=== PATIENT | male | born 1930 | race Caucasian/White ===

== ENCOUNTER 2018-01-01 09:28 | Emergency (ER) | payer MEDICARE, BC ==
[2018-01-01 10:02] LABS: BASOPHILS 0.9 % (0-2); EOSINOPHILS 3.1 % (0-7); HEMATOCRIT 45.8 % (42.0-54.0); HEMOGLOBIN 15.1 g/dL (13.5-17.5); IMMATURE GRANULOCYTES 0.2 % (0-5); LYMPHOCYTES 35.9 % (15-50); MCH 30.1 pg (26.0-34.0); MCV 91.4 fL (80.0-100.0); MEAN PLATELET VOLUME 10.2 fL (7.4-10.4); MONOCYTES 14.9 % (2-11); PLATELET COUNT 228 10x3/uL (130-400); RBC 5.01 10x6/uL (4.20-6.10); WBC 9.8 10x3/uL (4.8-10.8)
[2018-01-01 10:12] LABS: ALBUMIN 3.9 g/dL (3.4-5.0); ALKALINE PHOSPHATASE 52 U/L (46-116); ALT (SGPT) 81 U/L (10-68); BILIRUBIN - TOTAL 0.58 mg/dL (0.2-1.3); CALC OSMOLALITY 276 mosm/kg (275-300); CALCIUM 9.5 mg/dL (8.5-10.1); CARBON DIOXIDE 31.8 mmol/L (21.0-32.0); CHLORIDE - SERUM 101 mmol/L (98-107); CREATININE - SERUM 1.3 mg/dL (0.6-1.3); GLUCOSE 106 mg/dL (74-106); POTASSIUM - SERUM 3.7 mmol/L (3.5-5.1); PROTEIN - SERUM 8.2 g/dL (6.4-8.2); SODIUM 138 mmol/L (136-145); UREA NITROGEN 16 mg/dL (7-18); eGFR NON AFRICAN AMERICAN 55 mL/min (90-120)
[2018-01-01 10:23] LABS: CHOL - HDL RATIO 6.1 ratio (2.3-4.9); CHOLESTEROL, TOTAL 303 mg/dL (0-200); CKMB 1.9 U/L (0.0-3.6); CREATINE KINASE 140 UL (21-232); HDL CHOLESTEROL 50 mg/dL (32-96); LDL CHOLESTEROL 179 mg/dL (0-100); LDL-HDL RATIO 3.6 ratio (1.5-3.5); TRIGLYCERIDE 371 mg/dL (30-200); TROPONIN-I 0.046 ng/mL (0.000-0.060)
[2018-01-01 10:53] LABS: AMYLASE - SERUM 50 U/L (25-115); LIPASE 214 U/L (73-393)
[2018-01-01 10:57] LABS: INR 0.95 (0.85-1.17); PROTIME 12.3 SECONDS (11.6-15.0)
[2018-01-01 12:27] LABS: APPEARANCE CLEAR (CLEAR); BILIRUBIN NEGATIVE (NEGATIVE); COLOR YELLOW (YELLOW); GLUCOSE NEGATIVE (NEGATIVE); KETONE NEGATIVE (NEGATIVE); NITRITE NEGATIVE (NEGATIVE); PROTEIN NEGATIVE (NEGATIVE); SPECIFIC GRAVITY 1.005 (1.005-1.020); UROBILINOGEN NORMAL (NORMAL)
[2018-01-01 12:28] LABS: EPITHELIAL CELLS NSEEN /hpf (0-5); RED CELLS - URINE NONE SEEN /hpf (0-5); WHITE CELLS - URINE 0-5 /hpf (0-5)
[2018-01-01 12:29] LABS: BACTERIA NONE SEEN /hpf (NONE SEEN)
[2018-01-01 15:18] LABS: CKMB 1.3 U/L (0.0-3.6); CREATINE KINASE 109 UL (21-232); PRO BNP 112 pg/mL (0-450)
[2018-02-24 07:07] VITALS: BMI 33.9
== END 2018-01-01 16:01 | disposition home or self-care (01) ==
LOC: D.ER 09:28
PROVIDERS: Emergency Medicine; Nurse Practitioner Family
DX: R07.9 Chest pain, unspecified (principal); R94.5 Abnormal results of liver function studies; I45.10 Unspecified right bundle-branch block

== ENCOUNTER 2018-01-11 10:56 | Outpatient (CLI) | payer MEDICARE, BC ==
[~2018-01-11] VITALS: Ht 167.6 cm; Wt 95.0 kg
--- NOTE | ~2018-01-11 | HEMODYNAMI ---
PATIENT:BHARATH MEDINA MEDICAL RECORD: [id number] : 32 LOCATION:[facility] ADMISSION DATE: 01/11/18 Generatedon:01/11/201814:08 Patient name: BHARATH MEDINA Patient #: [id number] SSN: D OB: 1930 Date of study: 01/11/2018 Page: Of Hemodynamic Procedure Report Patient Data Patient Demographics Procedure consent was obtained First Name: BHARATH Gender: Male Last Name: ADAM : 1930 [facility] Initial: E Age: 87 year(s) Patient #: [id number] Race: Unknown Additional ID: [id number] Contact details Address: [address] [place] [address] State: [place] City: [facility] Zip code: [address] Past Medical History Allergies: No known allergies Admission Admission Data Admission Date: 01/11/2018 Admission Time: 10:56 Lab Results Lab Result Date: 01/11/2018 Lab Result Time: 0:00 Biochemistry Name Units Result Min Max BUN mg/dl 22 --(----)-* 7 18 Creatinine mg/dl 1.3 --(---*)-- 0.6 1.3 CBC Name Units Result Min Max Hemoglobin g/dl 15.3 --(-*--)-- 13.5 17.5 Procedure Procedure Types Cath Procedure Diagnostic Procedure [facility] w/Coronaries Sedation Charges Moderate Sedation up to 30 minutes PCI Procedure Coronary Stent Coronary Stent Initial Procedure Description Procedure Date Procedure Date: 01/11/2018 Procedure Start Time: 13:31 Procedure End Time: 14:08 Procedure Staff Name Function Reyes Weller MD Performing Physician Yue Mac RT Monitor Nafisa Oliver RT Scrub Jose Cruz Yoo RN Nurse Procedure Data Cath Procedure Fluoroscopy Diagnostic fluoroscopy Total fluoroscopy Time: 10 time: 10 min min Diagnostic fluoroscopy Total fluoroscopy dose: dose: 1106 mGy 1106 mGy Contrast Material Contrast Material Type Amount (ml) Isovue 300 146 Entry Location Entry Primary Successful Side Size Upsize Upsize Entry Closure Bennett ccessful Closure Location (Fr) 1 (Fr) 2 (Fr) Remarks Device Remarks Radial Right 6 Fr Mechanical artery Short Compression Estimated blood loss: 10 ml Diagnostic catheters Device Type Used For End Catheter Placement DIAGNOSTIC Alexey 110cm LV Angiography 5Fr catheter ([id number]) DIAGNOSTIC Alexey 110cm Left Coronary 5Fr catheter (116604) Angiography DIAGNOSTIC Alexey 110cm Right Coronary 5Fr catheter ([id number]) Angiography DIAGNOSTIC AR 2 MOD 5 Fr Right Coronary catheter ([id number]) Angiography DIAGNOSTIC AR MOD 5Fr Right Coronary Catheter ([id number]) Angiography Procedure Complications No complications Procedure Medications Medication Administration Route Dosage Oxygen NC 2 l/min Lidocaine 2% added to field 20 Heparin Flush Bag added to field 2 bags (1000units/500ml NS) 0.9% NaCl I.V. 100 ml/hr Versed I.V. 1 mg Fentanyl I.V. 50 mcg Versed I.V. 1 mg Fentanyl I.V. 50 mcg Versed I.V. 1 mg Fentanyl I.V. 50 mcg Heparin Bolus I.V. 9500 units Versed I.V. 1 mg Fentanyl I.V. 50 mcg Plavix P.O. 600 mg Hemodynamics Rest HGB: 15.3 (g/dl) Heart Rate: 63 (bpm) Pressure Samples Time Site Value (mmHg) Purpose Heart Use Rate(bpm) 13:33 LV 123/14,27 EDP 67 Gradients Valve Time Site Site Mean SEP/DFP Peak To Heart Use 1 2 (mmHg) (sec/min) Peak Rate (mmHg) (bpm) Aortic 13:34 LV AO 65 Snapshots Pre Cath Intra NCS Post Cath Vital Signs Time Heart Resp SPO2 etCO2 NIBP (mmHg) Rhythm Pain Sedation Rate (ipm) (%) (mmHg) Status Level (bpm) 13:20:54 68 18 100 35.9 158/76(135) NSR 0 (11) 10(A) , No pain 13:26:28 61 16 100 32.9 126/64(95) NSR 0 (11) 10(A) , No pain 13:31:10 58 14 96 1.4 126/78(106) NSR 0 (11) 9(A) , No pain 13:35:49 64 14 94 2.9 107/83(96) NSR 0 (11) 9(A) , No pain 13:40:30 67 15 95 3.7 104/69(96) NSR 0 (11) 9(A) , No pain 13:45:10 66 17 97 0 111/63(97) NSR 0 (11) 9(A) , No pain 13:49:53 65 18 98 2.9 124/62(89) NSR 0 (11) 9(A) , No pain 13:54:37 66 19 98 24.6 123/66(102) NSR 0 (11) 9(A) , No pain 13:59:22 67 16 98 22.4 133/73(97) NSR 0 (11) 9(A) , No pain 14:04:07 77 15 99 35.1 141/82(99) NSR 0 (11) 10(A) , No pain Medications Time Medication Route Dose Verified Delivered Reason Notes Effectiveness by by 13:26:07 Oxygen NC 2 Reyes Buffie used for l/min Nithin Yoo RN procedure 13:26:15 Lidocaine 2% added 20ml Reyes Reyes used for to vial Nithin Weller MD procedure field 13:26:21 Heparin Flush added 2 Reyes Reyes used for Bag to bags Nithin Weller MD procedure (1000units/500ml field NS) 13:26:29 0.9% NaCl I.V. 100 Reyes Buffie Per physician ml/hr Nithin Yoo RN 13:26:37 Versed I.V. 1 mg Reyes Buffie for sedation Nithin Yoo RN 13:26:43 Fentanyl I.V. 50 Reyes Buffie for sedation mcg Nithin Yoo RN 13:28:12 Versed I.V. 1 mg Reyes Buffie for sedation Nithin Yoo RN 13:28:15 Fentanyl I.V. 50 Reyes Buffie for sedation mcg Nithin Yoo RN 13:33:37 Versed I.V. 1 mg Reyes Buffie for sedation Nithin Yoo RN 13:33:46 Fentanyl I.V. 50 Reyes Buffie for sedation mcg Nithin Yoo RN 13:46:19 Heparin Bolus I.V. 9500 Reyes Buffie for verifi ed units Nithin Yoo RN anticoagulation with dr weller 13:48:14 Versed I.V. 1 mg Reyes Buffie for sedation Nithin Yoo RN 13:48:18 Fentanyl I.V. 50 Reyes Billingsley for sedation mcg Nithin Yoo RN 14:06:16 Plavix P.O. 600 Reyes Billingsley for mg Nithin Yoo RN antiplatelet therapy Procedure Log Time Note 12:56:24 Time tracking: Regular hours 12:56:28 Plan of Care:Hemodynamics will remain stable., Cardiac rhythm will remain stable., Comfort level will be maintained., Respiratory function will remain adequate., Patient/ family verbilizes understanding of procedure., Procedure tolerated without complication., Recovers from procedure without complications.. 12:56:31 Signed procedure consent form obtained from patient. 12:56:38 H&P Date Dictated: 01/07/2018 Within 30 days and on chart., H&P Addendum completed by physician on day of procedure. (MUST COMPLETE FOR ALL OUTPATIENTS). 12:57:44 Patient allergic to No known allergies 12:58:24 Lab Result : BUN 22 mg/dl 12:58:24 Lab Result : Creatinine 1.3 mg/dl 12:58:24 Lab Result : Hemoglobin 15.3 g/dl 13:04:08 Nafisa Oliver RT(R) sent for patient. Start room use. 13:10:43 Patient received from Pre/Post Procedure Room to CCL 1 Alert and oriented. Tansferred to table in Supine position. 13:19:46 Warm blankets applied, and ebony hugger turned on for patient comfort. 13:19:46 Correct patient and procedure confirmed by team. 13:19:47 ECG and BP/O2 sat monitors applied to patient. 13:19:48 Vital chart was started 13:19:49 Full Disclosure recording started 13:20:02 Rhythm: sinus rhythm 13:20:04 Pre-procedure instructions explained to patient. 13:20:05 Pre-op teaching completed and patient verbalized understanding. 13:20:08 Family unavailable. 13:20:09 Patient NPO since Midnight. 13:20:11 Is the patient allergic to Iodine/contrast media? No. 13:20:13 Is patient on blood thinner?No 13:20:15 Patient diabetic? No. 13:20:18 Previous problem with sedation/anesthesia? No ? 13:20:19 Snore? Yes 13:20:20 Sleep apnea? No 13:20:21 Deviated septum? No 13:20:21 Opens mouth fully? Yes 13:20:22 Sticks out tongue? Yes 13:20:24 Airway obstruction? No ? 13:20:27 Dentures? Yes IN 13:20:30 Pre procedure: right dorsailis pedis pulse 2+ Normal; easily identifiable; not easily obliterated 13:20:32 Modified Lazaro's test Ulnar < 7 seconds 13:20:34 Patient pain scale 0/10 ?. 13:20:40 IV patent on arrival in left hand with 0.9% NaCl at [facility]. 13:20:45 Lab results completed and on chart. 13:20:51 Right Radial & Right Groin area was prepped with chlora-prep and draped in sterile fashion 13:20:53 Alarms reviewed by R. N. 13:20:53 Sharps counted by scrub and verified by R.N. 13:21:01 Use device set Radial Dx or PCI 13:21:02 ACIST Syringe (61370) opened to sterile field. 13:21:02 Medline Cath Pack ([id number]) opened to sterile field. 13:21:02 Bag Decanter (2002S) opened to sterile field. 13:21:03 DIAGNOSTIC WIRE .035 260cm J wire (178196) opened to sterile field. 13:21:13 SHEATH 6Fr Prelude Radial ([id number]) opened to sterile field. 13:21:15 ACIST Hand Control (52032) opened to sterile field. 13:21:16 ACIST Manifold (44198) opened to sterile field. 13:21:16 Tegaderm 4 x 4 (1626W) opened to sterile field. 13:21:19 NEEDLE Cook 21G 4cm Radial ([id number]) opened to sterile field. 13:22:45 Final Timeout: patient, procedure, and site verified with staff and physician. All members of the team are in agreement. 13:22:48 Right Radial site verified by team. 13:22:50 Physical assessment completed. ASA score P 2 - A patient with mild systemic disease as per Reyes Weller MD. 13:22:53 Sedation plan: IV Moderate Sedation Medication:Versed, Fentanyl 13:24:34 Zero performed for pressure channel P1 13:24:41 Baseline sample Acquired. 13:26:07 Oxygen 2 l/min NC was administered by Jose Cruz Yoo RN; used for procedure; 13:26:15 Lidocaine 2% 20ml vial added to field was administered by Reyes Weller MD; used for procedure; 13:26:21 Heparin Flush Bag (1000units/500ml NS) 2 bags added to field was administered by Reyes Weller MD; used for procedure; 13::29 0.9% NaCl 100 ml/hr I.V. was administered by Jose Cruz Yoo RN; Per physician; 13:26:37 Versed 1 mg I.V. was administered by Jose Cruz Yoo RN; for sedation; 13::43 Fentanyl 50 mcg I.V. was administered by Jose Cruz Yoo RN; for sedation; 13:28:12 Versed 1 mg I.V. was administered by Jose Cruz Yoo RN; for sedation; 13:28:15 Fentanyl 50 mcg I.V. was administered by Jose Cruz Yoo RN; for sedation; 13:30:44 Procedure started. 13:31:06 Local anesthetic to right radial artery with Lidocaine 2% by Reyes Weller MD.INITIAL ACCESS ONLY 13:31:35 A 6 Fr Short sheath was inserted into the Right Radial artery 13:32:03 A DIAGNOSTIC Alexey 110cm 5Fr catheter ([id number]) was advanced over the wire and used for LV Angiography. 13:33:05 Zero performed for pressure channel P1 13:33:15 Zero performed for pressure channel P1 13:33:27 Zero performed for pressure channel P1 13:33:37 Versed 1 mg I.V. was administered by Jose Cruz Yoo RN; for sedation; 13:33:46 Fentanyl 50 mcg I.V. was administered by Jose Cruz Yoo RN; for sedation; 13:33:53 LV gram done using MOREL 13:34:00 LV hemodynamics recorded. 13:34:06 Injector settings: Ml/sec: 5, Volume: 15, 13:34:11 EF : 55 % 13:34:27 Catheter removed. 13:35:09 A DIAGNOSTIC Alexey 110cm 5Fr catheter (066745) was advanced over the wire and used for Left Coronary Angiography. 13:37:20 A DIAGNOSTIC Alexey 110cm 5Fr catheter (345649) was advanced over the wire and used for Right Coronary Angiography. unable to cannulate 13:37:21 Catheter removed. 13:37:58 A DIAGNOSTIC AR MOD 5Fr Catheter ([id number]) was advanced over the wire and used for Right Coronary Angiography. 13:40:07 Catheter removed. 13:40:43 A DIAGNOSTIC AR 2 MOD 5 Fr catheter ([id number]) was advanced over the wire and used for Right Coronary Angiography. 13:42:13 Catheter removed. 13:42:17 Use device set NITHIN PCI 13:42:20 TUBING High Pressure Extension Tubing (Weller) ([id number]) opened to sterile field. 13:42:21 INFLATOR Merit BasixCompak (CI0863) opened to sterile field. 13:42:24 BMW 300cm [place] 2 J wire ([id number]) opened to sterile field. 13:42:27 GUIDE 6FR XBLAD 3.5 catheter ([id number]) opened to sterile field. 13:44:12 6 Fr XBLAD 3.5 guide catheter was inserted over the wire 13:44:38 Procedure type changed to Cath procedure, Diagnostic procedure, LHC, LHC w/Coronaries, Sedation Charges, Moderate Sedation up to 30 minutes, PCI procedure, Coronary Stent, Coronary Stent Initial 13:46:19 Heparin Bolus 9500 units I.V. was administered by Jose Cruz Yoo RN; for anticoagulation; verified with dr weller 13:47:15 BMW wire advanced. 13:48:14 Versed 1 mg I.V. was administered by Jose Cruz Yoo RN; for sedation; 13:48:18 Fentanyl 50 mcg I.V. was administered by Jose Cruz Yoo RN; for sedation; 13:51:06 Inflation number: 1 A EMERGE OTW 2.0 x 20 balloon ([id number]) was prepped and advanced across the Mid LAD, then inflated to 13 IRENE for 0:27 (min:sec). 13:51:41 Inflation number: 2 The EMERGE OTW 2.0 x 20 balloon ([id number]) was reinflated across the Mid LAD, to 14 IRENE for 0:18 (min:sec). 13:52:30 Stent catheter was removed intact over wire. 14:01:49 Inflation Number: 3 A ELUNIR 2.75 x 24 stent ([id number]) was prepped and advanced across the Mid LAD. The stent was deployed at 14 IRENE for 0:23 (min:sec). 14:02:22 Stent catheter was removed intact over wire. 14:02:25 Wire removed. 14:03:12 Guide catheter removed. 14:03:19 Sheath removed intact; hemostasis achieved with Mechanical Compression to the Right Radial artery. 14:03:21 Procedure ended.(Physican Out) 14:03:31 Fluoroscopy time 10.00 minutes. 14:03:34 Fluoroscopy dose: 1106 mGy 14:03:34 Flurop Dose total: 1106 14:03:37 Contrast amount:Isovue 300 146ml. 14:03:39 Sharps counted by scrub and verified by R.N. 14:03:41 TR band inflated with 14cc of air. 14:06:15 Insertion/operative site no bleeding no hematoma. 14:06:16 Plavix 600 mg P.O. was administered by Jose Cruz Yoo RN; for antiplatelet therapy; 14:06:28 Post right radial artery:stable, clean and dry 14:06:29 Post Procedure Pulses reassessed and unchanged 14:06:32 Post-procedure physical assessment completed. ASA score P 2 - A patient with mild systemic disease as per Reyes Weller MD. 14:06:35 Post procedure rhythm: unchanged. 14:06:42 Estimated blood loss: 10 ml 14:06:43 Post procedure instruction explained to patient.Patient verbalizes understanding. 14:06:44 Patient needs reinforcement of post procedure teaching. 14:06:49 Procedure Complication : No complications 14:06:51 See physician's report for complete and final results. 14:07:51 TR BAND Standard ([id number]) opened to sterile field. 14:08:13 Procedure and supply charges have been captured, reviewed, submitted and are correct. 14:08:13 Vital chart was stopped 14:08:15 Report given to Pre/Post Procedure Room. 14:08:17 Patient transfered to Pre/Post Procedure Room with Stretcher. 14:08:24 Procedure ended. 14:08:24 Full Disclosure recording stopped 14:08:29 End room use (Document Last) Intervention Summary Intervention Notes Time ActionType Lesion and Equipment Action# Pressure Duration Attributes Used 13:51:06 Inflate Mid LAD EMERGE OTW 1 13 00:27 balloon 2.0 x 20 balloon ([id number]) 13:51:41 Reinflate Mid LAD EMERGE OTW 2 14 00:18 balloon 2.0 x 20 balloon ([id number]) 14:01:49 Place stent Mid LAD ELUNIR 2.75 x 3 14 00:23 24 stent ([id number]) Device Usage Item Name Manufacture Quantity Catalog Number Hospital Part Current Minimal Lot# / Charge Number Stock Stock Serial# Code ACIST Syringe Acist 1 17788 274579 287598 169961 20 (01447) [employer] Medline Cath Cardinal 1 [id number] 358230 14975 120509 5 Pack Health ([id number]) Bag Decanter Microtek 1 2001S 889865 42710 396792 5 (2001S) Medical Inc. DIAGNOSTIC WIRE St Sim 1 389558 830649 023154 868925 30 .035 260cm J wire (612037) SHEATH 6Fr Merit 1 [id number] 642599 013713 285495 5 Prelude Radial Medical ([id number]) ACIST Hand Acist 1 79556 071407 156629 796344 5 Control (66689) Medical Systems Inc ACIST Manifold Acist 1 99445 380532 567480 321344 5 (01311) [employer] Tegaderm 4 x 4 3M 1 1626W 882051 986948 111386 5 (1626W) NEEDLE Cook 21G Cook Medical 1 [id number] 589564 269125 467700 5 4cm Radial (T79255) DIAGNOSTIC Terumo 1 40-2112 655603 534099 788549 5 Alexey 110cm 5Fr catheter (687794) DIAGNOSTIC AR 2 Cardinal 1 [id number] 969480 758362 811179 20 MOD 5 Fr Health catheter (383921M) DIAGNOSTIC AR Cardinal 1 [id number] 966501 509369 617463 15 MOD 5Fr Health Catheter (256060U) TUBING High Merit 1 [id number] 959845 09117 627582 10 Pressure Medical Extension Tubing (Weller) ([id number]) INFLATOR Merit Merit 1 XE5756 898157 889496 833784 15 [facility] (YS0298) BMW 300cm [place] 1 [id number] 421470 743665 794868 5 [place] 2 J Vascular wire (2047645X) GUIDE 6FR XBLAD Cardinal 1 [id number] 593660 317610 717640 10 3.5 catheter Health (35276000) EMERGE OTW 2.0 Stafford 1 [id number] 293209 548805 606387 5 [id number] x 20 balloon Scientific ([id number]) ELUNIR 2.75 x Cardinal 1 [id number] 184202 068877 273172 5 [id number] 24 stent Health ([id number]) TR BAND Terumo 1 [id number] 372692 068515 453948 40 Standard ([id number]) Signature Audit [place] Stage Time Signature Unsigned Intra-Procedure 01/11/2018 Yue 2:08:40 PM Counts RT(R) Signatures Monitor : Yue Signature : Counts RT Date : Time : [id number] [place] [address]
[2018-01-11] MEDS ORDERED: LEVOTHYROXINE50 MCG PO (11:14)
[2018-01-11] MEDS ORDERED: COZAAR50 MG PO (11:14)
[2018-01-11] MEDS ORDERED: HYDROCHLOROTHIA50 MG PO (11:15)
[2018-01-11] MEDS ORDERED: PEPCID40 MG PO (11:15)
[2018-01-11] MEDS ORDERED: CARAFATE1 G PO (11:16)
[2018-01-11] MEDS ORDERED: PROPRANOLOL HCL80 MG PO (11:16)
[2018-01-11] MEDS ORDERED: ATIVAN0.5 MG PO (11:17)
[2018-01-11] MEDS ORDERED: BAYER CHEWABLE81 MG PO ×2 (11:17→14:24)
[2018-01-11] MEDS ORDERED: MULTIPLE VITAMI1 TA1 PO (11:17)
[2018-01-11 11:28] VITALS: BP 193/82; Ht 167.6 cm; Wt 95.0 kg
[2018-01-11 11:34] LABS: BASOPHILS 1.1 % (0-2); EOSINOPHILS 2.8 % (0-7); HEMATOCRIT 46.2 % (42.0-54.0); HEMOGLOBIN 15.3 g/dL (13.5-17.5); IMMATURE GRANULOCYTES 0.3 % (0-5); MCH 29.9 pg (26.0-34.0); MCHC 33.1 g/dL (31.0-37.0); MCV 90.4 fL (80.0-100.0); MEAN PLATELET VOLUME 10.5 fL (7.4-10.4); MONOCYTES 15.8 % (2-11); PLATELET COUNT 241 10x3/uL (130-400); RBC 5.11 10x6/uL (4.20-6.10); RDW 13.6 % (11.5-14.5); WBC 10.3 10x3/uL (4.8-10.8)
[2018-01-11 12:29] LABS: ANION GAP 8.9 mmol/L (8-16); CALCIUM 9.4 mg/dL (8.5-10.1); CARBON DIOXIDE 31.5 mmol/L (21.0-32.0); CREATININE - SERUM 1.3 mg/dL (0.6-1.3); POTASSIUM - SERUM 4.4 mmol/L (3.5-5.1)
[2018-01-11] MEDS ORDERED: PLAVIX75 MG PO (14:24)
== END 2018-01-11 18:30 | disposition home or self-care (01) ==
LOC: D.CATH 10:56
PROVIDERS: Internal Medicine Cardiovascular Disease
DX: I25.110 Atherosclerotic heart disease of native coronary artery with unstable angina pectoris (principal); I10 Essential (primary) hypertension; Z01.812 Encounter for preprocedural laboratory examination
CPT/HCPCS: 93458; C9600

== ENCOUNTER 2018-02-24 06:28 | Outpatient (CLI) | payer MEDICARE, BC ==
[~2018-02-24] VITALS: Ht 167.6 cm; Wt 95.5 kg
--- NOTE | ~2018-02-24 | HEMODYNAMI ---
PATIENT:BHARATH MEDINA MEDICAL RECORD: [id number] : 32 LOCATION:[facility] ADMISSION DATE: 02/24/18 Generatedon:02/24/20189:20 Patient name: BHARATH MEDINA Patient #: [id number] SSN: D OB: 1930 Date of study: 02/24/2018 Page: Of Hemodynamic Procedure Report Patient Data Patient Demographics Procedure consent was obtained First Name: BHARATH Gender: Male Last Name: ADAM : 1930 [facility] Initial: E Age: 87 year(s) Patient #: [id number] Race: Unknown Additional ID: [id number] Contact details Address: [address] [place] [address] State: [place] City: [facility] Zip code: [address] Past Medical History Allergies: No known allergies Admission Admission Data Admission Date: 02/24/2018 Admission Time: 6:28 Procedure Procedure Types Cath Procedure Diagnostic Procedure LHC LHC w/Coronaries Sedation Charges Moderate Sedation up to 15 minutes Procedure Description Procedure Date Procedure Date: 02/24/2018 Procedure Start Time: 8:59 Procedure End Time: 9:18 Procedure Staff Name Function Reyes Weller MD Performing Physician Marina Holliday RT Monitor Allyssa Church RT Scrub Jose Cruz Yoo RN Nurse Procedure Data Cath Procedure Fluoroscopy Diagnostic fluoroscopy Total fluoroscopy Time: 5.5 time: 5.5 min min Diagnostic fluoroscopy Total fluoroscopy dose: 750 dose: 750 mGy mGy Contrast Material Contrast Material Type Amount (ml) Isovue 300 65 Entry Location Entry Primary Successful Side Size Upsize Upsize Entry Closure Bennett ccessful Closure Location (Fr) 1 (Fr) 2 (Fr) Remarks Device Remarks Radial Right 6 Fr Mechanical artery Short Compression Estimated blood loss: 10 ml Diagnostic catheters Device Type Used For End Catheter Placement DIAGNOSTIC Alexey 110cm Procedure 5Fr catheter ([id number]) DIAGNOSTIC [place] 110cm 5 Procedure Fr catheter (368540) DIAGNOSTIC Carmina 5Fr Procedure catheter (140067) DIAGNOSTIC Alexey 110cm Procedure 5Fr catheter (068877) Procedure Complications No complications Procedure Medications Medication Administration Route Dosage Oxygen NC 2 l/min Lidocaine 2% added to field 20 Heparin Flush Bag added to field 2 bags (1000units/500ml NS) 0.9% NaCl I.V. 100 ml/hr Radial Cocktail I.A. 1 syringe (Verapomil 2mg/Nitro 400mcg/Heparin 1500units) Versed I.V. 1 mg Fentanyl I.V. 50 mcg Versed I.V. 1 mg Fentanyl I.V. 50 mcg Versed I.V. 1 mg Fentanyl I.V. 25 mcg Hemodynamics Rest Heart Rate: 64 (bpm) Pressure Samples Time Site Value (mmHg) Purpose Heart Use Rate(bpm) 9:01 LV 96/11,24 Snapshot 71 Gradients Valve Time Site Site Mean SEP/DFP Peak To Heart Use 1 2 (mmHg) (sec/min) Peak Rate (mmHg) (bpm) Aortic 9:02 LV AO 62 Snapshots Pre Cath Intra NCS Post Cath Vital Signs Time Heart Resp SPO2 etCO2 NIBP (mmHg) Rhythm Pain Sedation Rate (ipm) (%) (mmHg) Status Level (bpm) 8:38:13 71 15 100 34.5 165/77(136) NSR 0 (11) 10(A) , No pain 8:42:43 61 18 99 36.7 138/64(114) NSR 0 (11) 10(A) , No pain 8:47:03 59 14 94 27 120/64(99) NSR 0 (11) 10(A) , No pain 8:52:06 56 16 98 29 113/60(92) NSR 0 (11) 10(A) , No pain 8:56:18 55 16 97 0 112/62(99) NSR 0 (11) 10(A) , No pain 9:00:28 56 15 96 10.5 116/64(90) NSR 0 (11) 9(A) , No pain 9:04:42 56 17 97 20.2 97/54(62) NSR 0 (11) 9(A) , No pain 9:08:52 57 16 97 13.5 95/59(82) NSR 0 (11) 9(A) , No pain 9:13:04 57 17 98 31.5 94/53(80) NSR 0 (11) 9(A) , No pain 9:17:14 60 17 98 25.5 97/56(77) NSR 0 (11) 10(A) , No pain Medications Time Medication Route Dose Verified Delivered Reason Notes E ffectiveness by by 8:40:03 Oxygen NC 2 l/min Reyes Buffie used for Nithin Yoo RN procedure 8:40:10 Lidocaine 2% added 20ml Reyes Reyes for local to vial Nithin Weller MD anesthetic field 8:40:16 Heparin Flush added 2 bags Reyes Reyes used for Bag to Nithin Weller MD procedure (1000units/500ml field NS) 8:40:26 0.9% NaCl I.V. 100 Reyes Buffie Per ml/hr Nithin Yoo RN physician 8:57:12 Versed I.V. 1 mg Reyes Buffie for sedation Nithin Yoo RN 8:57:17 Fentanyl I.V. 50 mcg Reyes Buffie for sedation Nithin Yoo RN 9:00:40 Radial Cocktail I.A. 1 Reyes Reyes for (Verapomil syringe Nithin Weller MD vasodilation 2mg/Nitro 400mcg/Heparin 1500units) 9:00:46 Versed I.V. 1 mg Reyes Buffie for sedation Nithin Yoo RN 9:00:50 Fentanyl I.V. 50 mcg Reyes Buffie for sedation Nithin Yoo RN 9:06:09 Versed I.V. 1 mg Reyes Buffie for sedation Nithin Yoo RN 9:06:15 Fentanyl I.V. 25 mcg Reyes Buffie for sedation Nithin Yoo RN Procedure Log Time Note 8:15:15 Jose Cruz Yoo RN sent for patient. Start room use. 8:15:16 Time tracking: Regular hours (M-F 7:00 - 5:00) 8:15:21 Plan of Care:Hemodynamics will remain stable., Cardiac rhythm will remain stable., Comfort level will be maintained., Respiratory function will remain adequate., Patient/ family verbilizes understanding of procedure., Procedure tolerated without complication., Recovers from procedure without complications.. 8:27:30 Patient received from Pre/Post Procedure Room to [facility] Alert and oriented. Tansferred to table in Supine position. 8:27:31 Warm blankets applied, and ebony hugger turned on for patient comfort. 8:27:32 Correct patient and procedure confirmed by team. 8:27:34 Signed procedure consent form obtained from patient. 8:27:37 ECG and BP/O2 sat monitors applied to patient. 8:36:47 Vital chart was started 8:36:48 Baseline sample Acquired. 8:36:52 Rhythm: sinus rhythm 8:36:54 Full Disclosure recording started 8:36:58 H&P Date Dictated: 02/24/2018 Within 30 days and on chart., H&P Addendum completed by physician on day of procedure. (MUST COMPLETE FOR ALL OUTPATIENTS). 8:36:59 Pre-procedure instructions explained to patient. 8:37:00 Pre-op teaching completed and patient verbalized understanding. 8:40:03 Oxygen 2 l/min NC was administered by Jose Cruz Yoo RN; used for procedure; 8:40:10 Lidocaine 2% 20ml vial added to field was administered by Reyes Weller MD; for local anesthetic; 8:40:16 Heparin Flush Bag (1000units/500ml NS) 2 bags added to field was administered by Reyes Weller MD; used for procedure; 8:40:26 0.9% NaCl 100 ml/hr I.V. was administered by Jose Cruz Yoo RN; Per physician; 8:41:06 Family in waiting room. 8:41:08 Patient NPO since Midnight. 8:41:14 Patient allergic to No known allergies 8:41:17 Is the patient allergic to Iodine/contrast media? No. 8:41:19 Was the patient premedicated? Yes 8:41:26 Is patient on blood thinner?Yes 8:41:29 ACC The patient was administered the following blood thiners within the last 24 hours: ACCPlavix 8:41:35 Patient diabetic? No. 8:41:42 Previous problem with sedation/anesthesia? No ? 8:41:47 Snore? Yes 8:41:55 Dentures? Yes in tight 8:42:00 Patient pain scale 0/10 ?. 8:42:09 IV patent on arrival in left forearm with 0.9% NaCl at O. 8:42:22 Lab results completed and on chart. 8:42:26 Right Radial & Right Groin area was prepped with chlora-prep and draped in sterile fashion 8:42:28 Alarms reviewed by R. N. 8:42:29 Sharps counted by scrub and verified by R.N. 8:50:02 Physician paged 8:51:44 Zero performed for pressure channel P1 8:51:54 Zero performed for pressure channel P1 8:56:14 Physician arrived 8:56:15 --------ALL STOP TIME OUT------ 8:56:18 Final Timeout: patient, procedure, and site verified with staff and physician. All members of the team are in agreement. 8:57:12 Versed 1 mg I.V. was administered by Jose Cruz Yoo RN; for sedation; 8:57:17 Fentanyl 50 mcg I.V. was administered by Jose Curz Yoo RN; for sedation; 8:58:00 Right Radial site verified by team. 8:58:04 Physical assessment completed. ASA score P 2 - A patient with mild systemic disease as per Reyes Weller MD. 8:58:09 Sedation plan: IV Moderate Sedation Medication:Versed, Fentanyl 8:58:14 Use device set Femoral Dx 8:58:16 ACIST Syringe (32357) opened to sterile field. 8:58:16 Bag Decanter (2002S) opened to sterile field. 8:58:17 Medline Cath Pack ([id number]) opened to sterile field. 8:58:19 DIAGNOSTIC WIRE .035 260cm J wire (663797) opened to sterile field. 8:58:21 ACIST Hand Control (93230) opened to sterile field. 8:58:22 ACIST Manifold (60827) opened to sterile field. 8:58:22 DIAGNOSTIC Multipack 5Fr catheter set ([id number]) opened to sterile field. 8:58:24 Tegaderm 4 x 4 (1626W) opened to sterile field. 8:59:00 SHEATH 6Fr Prelude Radial ([id number]) opened to sterile field. 8:59:23 Procedure started. 8:59:39 Local anesthetic to right radial artery with Lidocaine 2% by Reyes Weller MD.INITIAL ACCESS ONLY 8:59:54 A 6 Fr Short sheath was inserted into the Right Radial artery 9:00:26 A DIAGNOSTIC Alexey 110cm 5Fr catheter (693849) was advanced over the wire and used for Procedure. 9:00:40 Radial Cocktail (Verapomil 2mg/Nitro 400mcg/Heparin 1500units) 1 syringe I.A. was administered by Reyes Weller MD; for vasodilation; 9:00:46 Versed 1 mg I.V. was administered by Jose Cruz Yoo RN; for sedation; 9:00:50 Fentanyl 50 mcg I.V. was administered by Jose Cruz Yoo RN; for sedation; 9:02:05 EF : 60 % 9:03:07 RCA angiography performed. 9:03:55 Catheter removed. 9:04:11 A DIAGNOSTIC [place] 110cm 5 Fr catheter (392872) was advanced over the wire and used for Procedure. 9:06:09 Versed 1 mg I.V. was administered by Jose Cruz Yoo RN; for sedation; 9:06:15 Fentanyl 25 mcg I.V. was administered by Jose Cruz Yoo RN; for sedation; 9:08:11 Catheter removed. 9:08:20 A DIAGNOSTIC Carmina 5Fr catheter (153339) was advanced over the wire and used for Procedure. 9:10:51 Catheter removed. 9:11:14 A DIAGNOSTIC Alexey 110cm 5Fr catheter (518364) was advanced over the wire and used for Procedure. 9:14:55 LCA angiography performed. 9:15:00 Catheter removed. 9:15:13 TR BAND Standard ([id number]) opened to sterile field. 9:15:26 Sheath removed intact; hemostasis achieved with Mechanical Compression to the Right Radial artery. 9:16:03 Procedure ended.(Physican Out) 9:16:21 Fluoroscopy time 05.50 minutes. 9:16:25 Fluoroscopy dose: 750 mGy 9:16:25 Flurop Dose total: 750 9:16:30 Contrast amount:Isovue 300 65ml. 9:16:32 Sharps counted by scrub and verified by R.N. 9:16:37 TR band inflated with 12cc of air. 9:16:38 Insertion/operative site no bleeding no hematoma. 9:16:46 Post Procedure Pulses reassessed and unchanged 9:16:57 Post-procedure physical assessment completed. ASA score P 2 - A patient with mild systemic disease as per Reyes Weller MD. 9:17:01 Post procedure rhythm: sinus rhythm 9:17:04 Estimated blood loss: 10 ml 9:17:17 Post procedure instruction explained to patient.Patient verbalizes understanding. 9:17:26 Procedure type changed to Cath procedure, Diagnostic procedure, LHC, LHC w/Coronaries, Sedation Charges, Moderate Sedation up to 15 minutes 9:17:31 Procedure and supply charges have been captured, reviewed, submitted and are correct. 9:17:53 Procedure Complication : No complications 9:17:56 Vital chart was stopped 9:17:59 See physician's report for complete and final results. 9:18:01 Report given to Pre/Post Procedure Room. 9:18:04 Patient transfered to Pre/Post Procedure Room with Stretcher. 9:18:07 Procedure ended. 9:18:07 Full Disclosure recording stopped 9:18:11 End room use (Document Last) Device Usage Item Name Manufacture Quantity Catalog Number Hospital Part Current M inimal Lot# / Charge Number Stock Stock Serial# Code ACIST Syringe Acist 1 30200 026876 874616 713024 2 0 (57707) [employer] Bag Decanter Microtek 1 2001S 645342 49795 818053 5 () Medical Inc. Medline Cath Cardinal 1 [id number] 448150 78770 675092 5 Pack Health ([id number]) DIAGNOSTIC WIRE St Sim 1 690633 993495 747148 364502 3 0 .035 260cm J wire (452171) ACIST Hand Acist 1 99485 849427 564633 471021 5 Control (27351) [employer] Inc ACIST Manifold Acist 1 96767 284248 798860 851799 5 (05767) [employer] Inc DIAGNOSTIC Cardinal 1 [id number] 961534 14063 681122 3 0 Multipack 5Fr Health catheter set (DO0013) Tegaderm 4 x 4 3M 1 1626W 745590 059897 819116 5 (1626W) SHEATH 6Fr Merit 1 [id number] 938893 041086 271559 5 Prelude Radial Medical ([id number]) DIAGNOSTIC Terumo 1 40-5023 379718 826868 351533 5 Alexey 110cm 5Fr catheter (316609) DIAGNOSTIC Terumo 1 40-5013 134891 402310 930380 5 [place] 110cm 5 Fr catheter (754116) DIAGNOSTIC Terumo 1 40-5022 238764 159739 391645 5 Carmina 5Fr catheter (451043) TR BAND Terumo 1 [id number] 785535 806342 413632 4 0 Standard ([id number]) Signature Audit Roma Stage Time Signature Unsigned Intra-Procedure 02/24/2018 Marina Holliday 9:20:54 AM RT(R) Signatures Monitor : Marina Holliday Signature : RT Date : Time : [place] [address] [place] [address]
[~2018-02-24 06:28] MED LIST: ATIVAN0.5 MG PO; BAYER CHEWABLE81 MG PO; CARAFATE1 G PO; COZAAR50 MG PO; HYDROCHLOROTHIA50 MG PO; LEVOTHYROXINE50 MCG PO; MULTIPLE VITAMI1 TA1 PO; PEPCID40 MG PO; PLAVIX75 MG PO; PROPRANOLOL HCL80 MG PO
[2018-02-24 07:07] VITALS: BP 161/73; Ht 167.6 cm; Wt 95.5 kg
[2018-02-24 07:24] LABS: BASOPHILS 0.8 % (0-2); EOSINOPHILS 3.1 % (0-7); HEMATOCRIT 40.7 % (42.0-54.0); HEMOGLOBIN 13.5 g/dL (13.5-17.5); IMMATURE GRANULOCYTES 0.5 % (0-5); LYMPHOCYTES 31.7 % (15-50); MCH 29.6 pg (26.0-34.0); MCHC 33.2 g/dL (31.0-37.0); MCV 89.3 fL (80.0-100.0); MEAN PLATELET VOLUME 9.5 fL (7.4-10.4); MONOCYTES 15.3 % (2-11); NEUTROPHILS 48.6 % (40-80); PLATELET COUNT 287 10x3/uL (130-400); RBC 4.56 10x6/uL (4.20-6.10); RDW 13.4 % (11.5-14.5); WBC 9.2 10x3/uL (4.8-10.8)
[2018-02-24 07:33] LABS: ANION GAP 14.7 mmol/L (8-16); CALCIUM 9.1 mg/dL (8.5-10.1); CARBON DIOXIDE 23.7 mmol/L (21.0-32.0); CREATININE - SERUM 1.4 mg/dL (0.6-1.3); POTASSIUM - SERUM 4.4 mmol/L (3.5-5.1)
== END 2018-02-24 11:55 | disposition home or self-care (01) ==
LOC: D.CATH 06:28
PROVIDERS: Internal Medicine Cardiovascular Disease
DX: I25.119 Atherosclerotic heart disease of native coronary artery with unspecified angina pectoris (principal); Z95.5 Presence of coronary angioplasty implant and graft; Z01.812 Encounter for preprocedural laboratory examination

== ENCOUNTER 2018-04-17 14:10 | Inpatient (IN) | payer MEDICARE, BC ==
[~2018-04-17] VITALS: Ht 167.6 cm; Wt 96.9 kg
--- NOTE | ~2018-04-17 | DS ---
PATIENT:BHARATH MEDINA :32 MEDICAL RECORD: [id number] DISCHARGE SUMMARY ADMISSION DATE: 04/17/18 DISCHARGE DATE: 04/19/18 DATE OF ADMISSION: 04/17/2018 DATE OF DISCHARGE: 04/19/2018 ADMISSION DIAGNOSES: Leukocytosis, bronchitis versus early pneumonia, dehydration, coronary artery disease, hypothyroidism. DISCHARGE DIAGNOSES: Bronchitis with systemic inflammatory response syndrome/leukocytosis, dehydration, hypothyroidism. HOSPITAL COURSE: The patient was admitted to the Emergency Room, episodic fever and chills, was afebrile on admission, had persistent cough. Chest x-ray, no acute cardiopulmonary changes. EKG, no acute changes. CBC, white count was elevated at 19,500. Blood cultures were obtained. The patient was started on IV Levaquin, improved on a daily basis. The patient reports he feels back to himself. He is anxious to go home, tolerating regular diet. He reports back to baseline. OBJECTIVE: VITAL SIGNS ON DISCHARGE: Temperature 99.1, blood pressure 129/58, heart rate 58, respirations 18, O2 saturations 94% on room air. GENERAL: He is alert, oriented, sitting up, eating breakfast, reports feeling much better, anxious to go home. HEART: Regular. LUNGS: Clear to auscultation. Breathing is nonlabored. ABDOMEN: Soft. EXTREMITIES: Present times 4. NEUROLOGIC: Intact. LABORATORY DATA: CBC shows a white count improved to 12.5, hemoglobin 12.1, hematocrit 37, platelets 260. Blood cultures have remained negative to date. The patient discharged home in an improved condition, will complete antibiotics. He has been on oral antibiotics for the past 24 hours, will follow up with his primary care physician, Dr. Washington next week and as needed. MEDICATIONS: Per med rec. TRANSINT:[id number] Voice Confirmation ID: [id number] DOCUMENT ID: [id number] ELTON BRAND DO at 0822 CC: [id number] DICTATION DATE: 04/19/18 08 PARTS IDENTIFIER: 04/19/18 1346 DIS IN 04/19/18 [place] [address]
--- NOTE | ~2018-04-17 | HP ---
PATIENT: BHARATH MEDINA MEDICAL RECORD: [id number] ACCOUNT: [id number] LOCATION:[address] : [birth year] ADMISSION DATE: 04/17/18 HISTORY AND PHYSICAL EXAMINATION HISTORY: An 87-year-old male admitted to [facility] Emergency Room, [facility]. His primary care physician is Dr. Santiago Washington. 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 Weller. He had a clear heart cath in February. He had previous stents. He denies chest pain. He has had cough, shortness of breath, chills for the past week. He was told at an outside clinic that he had pneumonia several days ago. Denies being treated with any antibiotics. He has had persistent nonproductive cough for the past 7 days of wheezing. ALLERGIES: No known drug allergies. HOME MEDICATIONS: Levothyroxine 50 mcg daily, losartan 50 mg daily, Pepcid 40 mg daily, hydrochlorothiazide 50 mg daily, propranolol 80 mg daily, Carafate 1 gram daily, Ativan 0.5 mg p.r.n. anxiety, aspirin 81 mg daily, multivitamin, Plavix 75 mg daily. PAST MEDICAL HISTORY: Significant for previous cardiac catheterizations with history of 2 stents placed. Recent cardiac catheterization report reviewed. No significant changes. Stents patent. No intervention required. Also relates a history of prostate cancer. FAMILY HISTORY: Significant for cardiovascular disease and lung disease. REVIEW OF SYSTEMS: CONSTITUTIONAL: No known change in weight or appetite. HEENT: No cephalgia, visual changes, tinnitus, epistaxis, or dysphagia. CARDIOVASCULAR: Denies chest pain. Denies palpitations. PULMONARY: Denies hemoptysis. Denies night sweats. Admits to nonproductive cough, chills for the past week, hoarseness. GASTROINTESTINAL: Denies hematemesis, hematochezia, or melena. GENITOURINARY: Denies dysuria. MUSCULOSKELETAL: No acute changes. ENDOCRINE: Denies polyuria, polydipsia, or polyphagia. PHYSICAL EXAMINATION: VITAL SIGNS: Temp 98.4, blood pressure is 121/94, heart rate 53, respirations 18, and O2 sat is 94%. GENERAL: Alert, oriented, in mild distress secondary to above. HEENT: Normocephalic, atraumatic. Eyes; pupils are equal, round, reactive. Ears; canals patent. TMs are intact. Nose; nares patent without drainage. Throat; no erythema and no exudates. NECK: Supple. No lymphadenopathy. No JVD. HEART: Regular, bradycardic. LUNGS: Bilateral rhonchi. ABDOMEN: Soft, nontender. Bowel sounds in all 4 quadrants. EXTREMITIES: Present times 4. No edema. NEUROLOGIC: No appreciable focal deficits. SKIN: Warm and dry. No rash. EKG shows sinus bradycardia, rate of 55, right bundle-branch block. CBC; white count 19,500, hemoglobin 13.5, hematocrit 40.6, platelets 316. BUN 38, HISTORY AND PHYSICAL [id number] BHARATH MEDINA creatinine 1.7, glucose 117, calcium 9.5. T-bili 0.5, AST 20, ALT 22, alk phos 74. Albumin 2.7. Blood cultures pending. Chest x-ray, single view; no acute changes. No acute cardiopulmonary disease appreciated per radiology reading. ASSESSMENT AND PLAN: 1. Leukocytosis. 2. Clinical pneumonia. 3. Dehydration. 4. CAD. 5. Hypothyroidism. The patient is admitted. IV fluids, cautious. Blood cultures pending. Cautious hydration. Repeat chest x-ray in a.m. We will check TSH. Continue home medications, DuoNebs. Supportive care. TRANSINT:[id number] Voice Confirmation ID: [id number] DOCUMENT ID: [id number] ELTON BRAND DO at 0808 CC: [id number] DICTATION DATE: 04/17/181745 SR. MANAGER MARKETING: 04/17/18 1840 ADM IN [place] [id number] [place] [address]
[2018-04-17 14:32] LABS: BASOPHILS 0.4 % (0-2); EOSINOPHILS 1.3 % (0-7); HEMATOCRIT 40.6 % (42.0-54.0); HEMOGLOBIN 13.5 g/dL (13.5-17.5); MCH 29.5 pg (26.0-34.0); MCHC 33.3 g/dL (31.0-37.0); MCV 88.6 fL (80.0-100.0); MEAN PLATELET VOLUME 10.2 fL (7.4-10.4); MONOCYTES 13.1 % (2-11); NEUTROPHILS 67.2 % (40-80); PLATELET COUNT 316 10x3/uL (130-400); RBC 4.58 10x6/uL (4.20-6.10); RDW 13.4 % (11.5-14.5); WBC 19.5 10x3/uL (4.8-10.8)
[2018-04-17 14:55] LABS: ALBUMIN 2.7 g/dL (3.4-5.0); BILIRUBIN - TOTAL 0.5 mg/dL (0.2-1.3); CALCIUM 9.5 mg/dL (8.5-10.1); CARBON DIOXIDE 30.7 mmol/L (21.0-32.0); CREATININE - SERUM 1.7 mg/dL (0.6-1.3); POTASSIUM - SERUM 3.7 mmol/L (3.5-5.1); PROTEIN - SERUM 7.9 g/dL (6.4-8.2)
[2018-04-17 15:00] VITALS: BP 121/94
[2018-04-17 16:30] VITALS: BP 121/59
[2018-04-17 17:30] VITALS: BP 116/88
[2018-04-17 19:04] VITALS: BP 141/53
[2018-04-18] VITALS (7 sets, daily range): BP systolic 118–147; BP diastolic 54–94; Ht 167.6 cm; Wt 96.9 kg
[2018-04-18 04:42] LABS: BASOPHILS 0.4 % (0-2); EOSINOPHILS 1.7 % (0-7); HEMATOCRIT 37.6 % (42.0-54.0); HEMOGLOBIN 12.2 g/dL (13.5-17.5); IMMATURE GRANULOCYTES 1.8 % (0-5); MCH 28.6 pg (26.0-34.0); MCHC 32.4 g/dL (31.0-37.0); MCV 88.3 fL (80.0-100.0); MEAN PLATELET VOLUME 10.1 fL (7.4-10.4); MONOCYTES 12.5 % (2-11); NEUTROPHILS 69.6 % (40-80); PLATELET COUNT 276 10x3/uL (130-400); RBC 4.26 10x6/uL (4.20-6.10); RDW 13.3 % (11.5-14.5); WBC 14.8 10x3/uL (4.8-10.8)
[2018-04-18 05:12] LABS: ANION GAP 10.7 mmol/L (8-16); CALCIUM 8.6 mg/dL (8.5-10.1); CARBON DIOXIDE 27.9 mmol/L (21.0-32.0); CREATININE - SERUM 1.3 mg/dL (0.6-1.3); PHOSPHOROUS 2.9 mg/dL (2.5-4.9); POTASSIUM - SERUM 3.6 mmol/L (3.5-5.1); THYROID STIMULATING HORMONE 1.14 uIU/mL (0.36-3.74)
[2018-04-19 04:00] VITALS: BP 138/58
[2018-04-19 04:32] LABS: BASOPHILS 0.4 % (0-2); EOSINOPHILS 2.2 % (0-7); HEMOGLOBIN 12.1 g/dL (13.5-17.5); IMMATURE GRANULOCYTES 3.1 % (0-5); LYMPHOCYTES 18.3 % (15-50); MCH 28.7 pg (26.0-34.0); MCHC 32.7 g/dL (31.0-37.0); MCV 87.7 fL (80.0-100.0); MEAN PLATELET VOLUME 9.9 fL (7.4-10.4); MONOCYTES 11.5 % (2-11); NEUTROPHILS 64.5 % (40-80); PLATELET COUNT 260 10x3/uL (130-400); RBC 4.22 10x6/uL (4.20-6.10); RDW 13.3 % (11.5-14.5); WBC 12.5 10x3/uL (4.8-10.8)
[2018-04-19 04:48] LABS: ANION GAP 10.8 mmol/L (8-16); CALCIUM 8.5 mg/dL (8.5-10.1); CARBON DIOXIDE 26.8 mmol/L (21.0-32.0); CREATININE - SERUM 1.2 mg/dL (0.6-1.3); POTASSIUM - SERUM 3.6 mmol/L (3.5-5.1)
[2018-04-19 08:00] VITALS: BP 129/58
[2018-04-19] MEDS ORDERED: LEVAQUIN500 MG PO (08:02)
== END 2018-04-19 11:21 | disposition home or self-care (01) | DRG 202 ==
LOC: D.ER 14:10 → D.M2 16:28 → D.EDHOLD 16:28 → D.M2 20:20
PROVIDERS: Family Medicine
DX: J40 Bronchitis, not specified as acute or chronic (principal); R65.10 Systemic inflammatory response syndrome (SIRS) of non-infectious origin without acute organ dysfunction; E86.0 Dehydration; I45.10 Unspecified right bundle-branch block; E03.9 Hypothyroidism, unspecified; I25.10 Atherosclerotic heart disease of native coronary artery without angina pectoris; Z95.5 Presence of coronary angioplasty implant and graft; Z85.46 Personal history of malignant neoplasm of prostate